=== PATIENT | female | born 1980 | race Caucasian/White ===

== ENCOUNTER 2022-08-15 08:45 | Outpatient (RCR) | payer OTHER ==
[~2022-08-15 08:45] MED LIST: FLEXERIL 1010 MG/TAB PO
== END 2022-08-29 | disposition home or self-care (01) ==
LOC: WSOH
DX: S30.0XXD Contusion of lower back and pelvis, subsequent encounter (principal); M46.96 Unspecified inflammatory spondylopathy, lumbar region; E78.00 Pure hypercholesterolemia, unspecified; Y99.0 Civilian activity done for income or pay